=== PATIENT | female | born 1995 | race Caucasian/White ===

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

== ENCOUNTER → 2017-01-06 | Outpatient (CLI) | payer OTHER | END | disposition home or self-care (01) | LOC: C.LAB 00:05 | DX: Z02.83 Encounter for blood-alcohol and blood-drug test (principal) ==

== ENCOUNTER → 2017-02-09 | Outpatient (CLI) | payer OTHER | END | disposition home or self-care (01) | LOC: C.LABSPEC 11:10 | PROVIDERS: ATTEND Nurse Practitioner Family | DX: J06.9 Acute upper respiratory infection, unspecified (principal) ==

== ENCOUNTER 2017-03-12 18:56 | Emergency (ER) | payer OTHER ==
[~2017-03-12] VITALS: Ht 154.9 cm; Wt 47.7 kg
[2017-03-12 19:01] VITALS: TEMP 36.7; Ht 154.9 cm; Wt 47.7 kg
[2017-03-12] MEDS ORDERED: SODIUM CHLORIDE 0.9% 1000ML 1,000 ML IV STA ×2 (19:19→20:38)
--- NOTE | 2017-03-12 19:26 | EMERGENCY ROOM VISIT NOTE ---
History Report prepared by John: Luis Fernando Moscoso Under the Supervision of: Dr. Nirmal Frias D.O. First contact with patient: 19:09 Chief Complaint: SEIZURE Stated Complaint: SEIZURE History of Present Illness The patient is a 21 year old female who presents to the Emergency Room with complaints of a possible resolved seizure occurring prior to arrival. The mother states that the patient recently started using a cough syrup with codeine , a steroid, and amoxicillin. An hour after taking these, the patient was pale and breaking out in a rash. Then she went to go to the bathroom, and she started shaking and her pupils got large, and she fell off of the toilet and was shaking on the floor. The patient's family then put her back on the toilet, and she blacked out. The mother states that when the patient woke up she was not confused afterwards. She denies any tongue biting, bowel incontinence, bladder incontinence, abdominal pain, neck pain, neck stiffness, leg swelling, and coughing. She notes that she has a headache, fever, and a sore throat. The patient states that her last period was two weeks ago, and she does not have any medical problems or past surgeries. The patient was given Benadryl an hour and a half ago. Source of History: patient Onset: prior to arrival Position: other (global) Quality: other (seizure) Timing: resolved Associated Symptoms: + LOC, + fevers, + headache, + sorethroat, No cough, No neck pain Review of Systems See HPI for pertinent positives & negatives. A total of 10 systems reviewed and were otherwise negative. Past Medical & Surgical Medical Problems: (1) Urinary tract infection Family History Patient reports no known family medical history. Social History Smoking Status: Current Every Day Smoker Alcohol Use: none Drug Use: none Marital Status: single Housing Status: lives with family Occupation Status: student Current/Historical Medications Scheduled Azithromycin (Zithromax), 250 MG PO DAILY Allergies Coded Allergies: Sulfa Antibiotics (Verified Allergy, Unknown, swelling, 03/12/17) Physical Exam Vital Signs Date Time Temp Pulse Resp B/P (MAP) Pulse Ox O2 Delivery O2 Flow Rate FiO2 03/12/17 21:19 80 18 92/64 100 Room Air 03/12/17 19:58 101 03/12/17 19:57 100 89/57 114 85/65 127 91/68 03/12/17 19:57 98 Room Air 03/12/17 19:01 36.7 137 18 84/59 100 Room Air Physical Exam GENERAL: Patient is awake, alert, and in no acute distress. Patient is resting comfortably and showing no signs of anxiety EYES: The conjunctivae are clear. The pupils are round and reactive. EARS, NOSE, MOUTH AND THROAT: The nose is without any evidence of any deformity. Mucous membranes are moist tongue is midline NECK: The neck is nontender and supple. RESPIRATORY: Normal respiratory effort is noted there is no evidence of wheezing rhonchi or rales CARDIOVASCULAR: Regular rate and rhythm noted there no murmurs rubs or gallops normal S1 normal S2 GASTROINTESTINAL: The abdomen is soft. Bowel sounds are present in all quadrants. Abdomen is nontender MUSCULOSKELETAL/EXTREMITIES: There is no evidence of gross deformity full range of motion is noted in the hips and shoulders SKIN: There is no obvious evidence of any rash. There are no petechiae, pallor or cyanosis noted. NEUROLOGIC: Patient is awake alert and oriented x3 strength is symmetric patellar reflexes are 2+ bilaterally Medical Decision & Procedures ER Provider Diagnostic Interpretation: Radiology results as stated below per my review and radiologist interpretation: CHEST ONE VIEW PORTABLE CLINICAL HISTORY: Altered mental status. Weakness. COMPARISON STUDY: 05/29/2014 FINDINGS: The cardiac and mediastinal contours are normal. There is no evidence of focal pulmonary consolidation. There is no evidence of failure. No pleural effusions are visualized.[ IMPRESSION: No active disease in the chest. Electronically signed by: Román Mayorga M.D. 03/12/2017 7:40 PM Dictated Date/Time: 03/12/2017 7:[address] HEAD WITHOUT CONTRAST (CT) CLINICAL HISTORY: Acute change in mental status. Weakness. COMPARISON STUDY: 02-04 TECHNIQUE: Axial CT of the brain is performed from the vertex to the skull base. IV contrast was not administered for this examination. A dose lowering technique was utilized adhering to the principles of ALARA. CT DOSE: 537.48 mGy.cm FINDINGS: No intra or extra-axial mass lesions are visualized. There is no CT evidence of acute cortical infarction. There is no evidence of midline shift. There is no acute hemorrhage. No calvarial fractures are visualized. There is no evidence of pathologic ventricular dilatation. There is no evidence of acute sinusitis IMPRESSION: No acute intracranial findings Electronically signed by: Román Mayorga M.D. 03/12/2017 9:07 PM Dictated Date/Time: 03/12/2017 9:[address] the chest was obtained in the emergency department. The report was reviewed. FINDINGS: There is a 1 cm right lobe thyroid nodule. No pathologically enlarged axillary mediastinal or hilar lymph nodes were visualized. There was no evidence of thoracic aortic dilatation. There were no pulmonary artery filling defects to indicate acute pulmonary embolism. No pleural effusions are visualized. There was no evidence of focal pulmonary consolidation. IMPRESSION: 1. No evidence of acute pulmonary embolism 2. No evidence of focal pulmonary consolidation 3. 1 cm right lobe thyroid nodule Electronically signed by: Román Mayorga M.D. 03/12/2017 10:02 PM Laboratory Results 03/12/17 19:45 Red Blood Count 4.99, Mean Corpuscular Volume 92.4, Mean Corpuscular Hemoglobin 32.9, Mean Corpuscular Hemoglobin Concent 35.6, Mean Platelet Volume 10.9, Neutrophils (%) (Auto) 87.3, Lymphocytes (%) (Auto) 6.8, Monocytes (%) (Auto) 5.4, Eosinophils (%) (Auto) 0.1, Basophils (%) (Auto) 0.1, Neutrophils # (Auto) 17.44, Lymphocytes # (Auto) 1.37, Monocytes # (Auto) 1.09, Eosinophils # (Auto) 0.03, Basophils # (Auto) 0.02 03/12/17 19:45 Test 03/12/17 19:45 White Blood Count 20.01 K/uL (4.8-10.8) Red Blood Count 4.99 M/uL (4.2-5.4) Hemoglobin 16.4 g/dL (12.0-16.0) Hematocrit 46.1 % (37-47) Mean Corpuscular Volume 92.4 fL (80-100) Mean Corpuscular Hemoglobin 32.9 pg (25-34) Mean Corpuscular Hemoglobin Concent 35.6 g/dl (32-36) Platelet Count 209 K/uL (130-400) Mean Platelet Volume 10.9 fL (7.4-10.4) Neutrophils (%) (Auto) 87.3 % Lymphocytes (%) (Auto) 6.8 % Monocytes (%) (Auto) 5.4 % Eosinophils (%) (Auto) 0.1 % Basophils (%) (Auto) 0.1 % Neutrophils # (Auto) 17.44 K/uL (1.4-6.5) Lymphocytes # (Auto) 1.37 K/uL (1.2-3.4) Monocytes # (Auto) 1.09 K/uL (0.11-0.59) Eosinophils # (Auto) 0.03 K/uL (0-0.5) Basophils # (Auto) 0.02 K/uL (0-0.2) RDW Standard Deviation 43.3 fL (36.4-46.3) RDW Coefficient of Variation 13.0 % (11.5-14.5) Immature Granulocyte % (Auto) 0.3 % Immature Granulocyte # (Auto) 0.06 K/uL (0.00-0.02) D-Dimer 34850 ug/L FEU (0-500) Anion Gap 9.0 mmol/L (3-11) Est Creatinine Clear Calc Drug Dose 82.1 ml/min Estimated GFR () 118.5 Estimated GFR (Non- 102.2 BUN/Creatinine Ratio 22.9 (10-20) Calcium Level 9.3 mg/dl (8.5-10.1) Magnesium Level 2.1 mg/dl (1.8-2.4) Total Bilirubin 0.9 mg/dl (0.2-1) Direct Bilirubin 0.2 mg/dl (0-0.2) Aspartate Amino Transf (AST/SGOT) 17 U/L (15-37) Alanine Aminotransferase (ALT/SGPT) 16 U/L (12-78) Alkaline Phosphatase 81 U/L (45-117) Troponin I < 0.015 ng/ml (0-0.045) Total Protein 7.2 gm/dl (6.4-8.2) Albumin 3.8 gm/dl (3.4-5.0) Thyroid Stimulating Hormone (TSH) 1.790 uIu/ml (0.300-4.500) Human Chorionic Gonadotropin, Qual NEG (NEG) Monoscreen NEG (NEG) Laboratory results per my review. Medications Administered Medications (Trade) Dose Ordered Sig/Stephanie Route Start Time Stop Time Status Last Admin Dose Admin Sodium Chloride 1,000 ml @ 999 mls/hr Q1H1M STAT IV 03/12/17 19:19 03/12/17 20:19 DC 03/12/17 19:56 999 MLS/HR Sodium Chloride 1,000 ml @ 999 mls/hr Q1H1M STAT IV 03/12/17 20:38 03/12/17 21:38 DC 03/12/17 21:21 999 MLS/HR ECG Indication: syncope Rate (beats per minute): 93 Rhythm: normal sinus Findings: no ectopy, other (No acute ST segment abnormality) Comparison ECG Date: no prior available ED Course 1908: The patient was evaluated in room B12. A complete history and physical examination were performed. 1918: NSS 1,000 ml @ 999 mls/hr IV 2037: NSS 1,000 ml @ 999 mls/hr IV 2039: I reevaluated the patient, and she was doing well. Medical Decision Differential diagnosis: Etiologies such as vasovagal event, infection, hypoglycemia, electrolyte abnormalities, cardiac sources, intracerebral event, toxicologic, neurologic, as well as others were entertained. Nursing notes reviewed. The patient is a 21-year-old female who presented to emergency department for evaluation after having a syncopal episode. The patient had multiple syncopal episodes prior to arrival. The history was obtained from the mother who witnessed the episode. She was concerned because it was some shaking and she was unsure if this represented a seizure however there is no tongue biting no loss of bowel or bladder continence and no postictal phase was reported. The patient was treated with IV fluids in the emergency department. Initially she was found have hypotension and tachycardia. She did not have a fever however she was treated recently for a pharyngitis with an antibiotic and steroid and Tylenol with Codeine. The patient was unsure if she had a reaction to one of the medications because she took them prior to the onset of the symptoms. The patient was treated with IV fluids in the emergency department. She was reevaluated multiple times. I discussed the patient's laboratory radiographic studies with her and her parents. The patient was found have an elevation in her white blood cell count. She does have upper respiratory symptoms. It is possible this elevation in his white blood cell count could be an acute phase reaction from the syncopal episode however the patient was encouraged to continue her antibiotic prescription. She was also given a steroid earlier today and this could cause her white blood cell count elevated. The patient did not wish to take any of the medication she was started on earlier so for this reason she was started on a different antibiotic. She was encouraged to follow-up with your family for further testing for syncope. She was also encouraged to return to the emergency department immediately if symptoms change worsen or the need arises. Medication Reconcilliation Current Medication List: was personally reviewed by me Blood Pressure Screening Patient's blood pressure: Low blood pressure Impression Primary Impression: Syncope Additional Impressions: Orthostatic hypotension Pharyngitis, acute Scribe Attestation The scribe's documentation has been prepared under my direction and personally reviewed by me in its entirety. I confirm that the note above accurately reflects all work, treatment, procedures, and medical decision making performed by me. Departure Information Prescriptions Azithromycin (Zithromax) 250 Mg Tab 250 MG PO DAILY, #4 TAB Prov: Nirmal Frias, DO 03/12/17 Patient Instructions My [facility] Problem Qualifiers Primary Impression: Syncope Syncope type: unspecified Qualified Codes: R55 - Syncope and collapse Additional Impressions: Pharyngitis, acute Pharyngitis/tonsillitis etiology: unspecified etiology Qualified Codes: J02.9 - Acute pharyngitis, unspecified
--- NOTE | 2017-03-12 19:42 | DIAGNOSTIC IMAGING REPORT ---
CHEST ONE VIEW PORTABLE CLINICAL HISTORY: Altered mental status. Weakness. COMPARISON STUDY: 05/29/2014 FINDINGS: The cardiac and mediastinal contours are normal. There is no evidence of focal pulmonary consolidation. There is no evidence of failure. No pleural effusions are visualized.[ IMPRESSION: No active disease in the chest. Electronically signed by: Román Mayorga M.D. 03/12/2017 7:40 PM Dictated Date/Time: 03/12/2017 7:40 PM
[2017-03-12 19:57] VITALS: O2SAT 98
[2017-03-12 19:57] LABS: BASO % 0.1 %; BASO ABS # 0.02 K/uL (0-0.2); COMPLETE YES; EOS % 0.1 %; HEMATOCRIT 46.1 % (37-47); IG% 0.3 %; LYMPH % 6.8 %; LYMPH ABS # 1.37 K/uL (1.2-3.4); MEAN CELL VOLUME 92.4 fL (80-100); MEAN CORPUSCULAR HEMOGLOBIN 32.9 pg (25-34); MEAN CORPUSCULAR HGB CONC 35.6 g/dl (32-36); MEAN PLATELET VOLUME 10.9 fL (7.4-10.4); MONO % 5.4 %; NEUT % 87.3 %; PLATELET COUNT 209 K/uL (130-400); RED BLOOD COUNT 4.99 M/uL (4.2-5.4); WHITE BLOOD COUNT 20.01 K/uL (4.8-10.8)
[2017-03-12 20:15] LABS: ALT/SGPT 16 U/L (12-78); BLOOD UREA NITROGEN 19 mg/dl (7-18); BUN/CREATININE RATIO 22.9 (10-20); CALCIUM 9.3 mg/dl (8.5-10.1); CARBON DIOXIDE 23 mmol/L (21-32); CHLORIDE 103 mmol/L (98-107); CREATININE 0.83 mg/dl (0.60-1.20); GLUCOSE 92 mg/dl (70-99); MAGNESIUM 2.1 mg/dl (1.8-2.4); POTASSIUM 3.7 mmol/L (3.5-5.1); SODIUM 135 mmol/L (136-145)
[2017-03-12 20:17] LABS: PREG INTERNAL NEGATIVE QC NEG CLEAR BACKGROUND; PREG INTERNAL POSITIVE QC POS CONTROL LINE
[2017-03-12 20:26] LABS: ALKALINE PHOSPHATASE 81 U/L (45-117); AST/SGOT 17 U/L (15-37)
--- NOTE | 2017-03-12 21:08 | DIAGNOSTIC IMAGING REPORT ---
CT HEAD WITHOUT CONTRAST (CT) CLINICAL HISTORY: Acute change in mental status. Weakness. COMPARISON STUDY: 02-04 TECHNIQUE: Axial CT of the brain is performed from the vertex to the skull base. IV contrast was not administered for this examination. A dose lowering technique was utilized adhering to the principles of ALARA. CT DOSE: 537.48 mGy.cm FINDINGS: No intra or extra-axial mass lesions are visualized. There is no CT evidence of acute cortical infarction. There is no evidence of midline shift. There is no acute hemorrhage. No calvarial fractures are visualized. There is no evidence of pathologic ventricular dilatation. There is no evidence of acute sinusitis IMPRESSION: No acute intracranial findings Electronically signed by: Román Mayorga M.D. 03/12/2017 9:07 PM Dictated Date/Time: 03/12/2017 9:06 PM
[2017-03-12] MEDS ORDERED: OPTIRAY 320 IV PRN (21:45)
--- NOTE | 2017-03-12 22:03 | DIAGNOSTIC IMAGING REPORT ---
CT ANGIOGRAM OF THE CHEST CLINICAL HISTORY: Syncope. COMPARISON STUDY: Chest x-ray dated 03/10/2017 TECHNIQUE: Following the IV administration of 85 mL of Optiray-320, CT angiogram of the thorax was performed from the thoracic inlet to the lung bases utilizing the pulmonary embolus protocol. Images are reviewed in the axial, sagittal, and coronal planes. IV contrast was administered without complication. MIP imaging was performed. A dose lowering technique was utilized adhering to the principles of ALARA. CT DOSE: 195.65 mGy.cm FINDINGS: There is a 1 cm right lobe thyroid nodule. No pathologically enlarged axillary mediastinal or hilar lymph nodes were visualized. There was no evidence of thoracic aortic dilatation. There were no pulmonary artery filling defects to indicate acute pulmonary embolism. No pleural effusions are visualized. There was no evidence of focal pulmonary consolidation. IMPRESSION: 1. No evidence of acute pulmonary embolism 2. No evidence of focal pulmonary consolidation 3. 1 cm right lobe thyroid nodule Electronically signed by: Román Mayorga M.D. 03/12/2017 10:02 PM Dictated Date/Time: 03/12/2017 9:57 PM
[2017-03-12] MEDS ORDERED: AZITHROMYCIN 250 MG TAB PO STA (22:10)
[2017-03-12] MEDS ORDERED: AZIT250T PO (22:12)
[2017-03-12 22:29] VITALS: BP 100/77; PULSE 80; O2SAT 98
[2017-03-12 22:34] LABS: MANUAL MICROSCOPIC REQUIRED? NO; REVIEW REQ? NO; URINE APPEARANCE CLEAR (CLEAR); URINE BILIRUBIN NEG (NEG); URINE COLOR YELLOW; URINE EPITHELIAL CELL AUTO >30 /lpf (0-5); URINE NITRITE NEG (NEG); URINE SPECIFIC GRAVITY > 1.045 (1.000-1.030); UROBILINOGEN NEG (NEG)
== END 2017-03-12 22:38 | disposition home or self-care (01) ==
LOC: C.EDB 18:56
DX: R55 Syncope and collapse (principal); J02.9 Acute pharyngitis, unspecified; R21 Rash and other nonspecific skin eruption; R03.1 Nonspecific low blood-pressure reading; R51 Headache; F17.200 Nicotine dependence, unspecified, uncomplicated

== ENCOUNTER → 2017-05-18 | Outpatient (CLI) | payer OTHER ==
[~2017-05-18] MED LIST: AZIT250T PO
== END | disposition home or self-care (01) ==
LOC: C.LABSPEC 13:49
PROVIDERS: ATTEND Physician Assistant
DX: N89.8 Other specified noninflammatory disorders of vagina (principal); R30.0 Dysuria

== ENCOUNTER → 2017-06-03 | Outpatient (CLI) | payer OTHER | END | disposition home or self-care (01) | LOC: C.LABSPEC 16:20 | PROVIDERS: ATTEND Physician Assistant Medical | DX: R39.9 Unspecified symptoms and signs involving the genitourinary system (principal) ==

== ENCOUNTER 2017-08-13 13:01 | Emergency (ER) | payer OTHER ==
[~2017-08-13] VITALS: Ht 154.9 cm; Wt 53.0 kg
[2017-08-13 13:13] VITALS: Ht 154.9 cm; Wt 53.0 kg
[2017-08-13] MEDS ORDERED: FAMOTIDINE 20MG/5ML IV PUSH IV STA (13:20)
[2017-08-13] MEDS ORDERED: METHYLPREDNISOLONE 125 MG VIAL IV STA (13:20)
[2017-08-13] MEDS ORDERED: SODIUM CHLORIDE 0.9% 1000ML 1,000 ML IV STA (13:20)
--- NOTE | 2017-08-13 13:22 | EMERGENCY ROOM VISIT NOTE ---
History Report prepared by John: Servando Beckett Under the Supervision of: Dr. Jeyson Faulkner M.D. First contact with patient: 13:16 Chief Complaint: ALLERGIC REACTION Stated Complaint: HIVES Nursing Triage Summary: see triage note History of Present Illness The patient is a 21 year old female who presents to the Emergency Room with complaints of a resolved rash to her arms and lips that occurred prior to arrival. The patient states she was evaluated by her PCP today because she was not feeling well. She reports she was not tested for strep throat, but she has a history of it. The patient notes she was placed on amoxicillin because of her history. She states she was given the liquid form and took her first dose. She reports she developed a rash on her arms, lips, and her tongue started to swell. The patient notes she took Benadryl BACK WEDGER and it resolved her rash. She denies the chance of . Source of History: patient Onset: BACK WEDGER Position: lip, arm (bilateral) Quality: other (rash) Timing: resolved Modifying Factors (Relieving): other (Benadryl) Note: Associated symptoms: tongue swelling Review of Systems See HPI for pertinent positives and negatives. A total of ten systems were reviewed and were otherwise negative. Past Medical & Surgical Medical Problems: (1) Urinary tract infection Family History Patient reports no known family medical history. Social History Smoking Status: Current Every Day Smoker Alcohol Use: none Drug Use: none Marital Status: single Housing Status: lives with family Occupation Status: student Current/Historical Medications Scheduled Control Pills ( Control Pills), 1 TAB PO DAILY Scheduled PRN Epinephrine (Epipen), 0.3 MG IM UD PRN for Allergic Reaction Allergies Coded Allergies: Sulfa Antibiotics (Verified Allergy, Unknown, swelling, 08/13/17) Physical Exam Vital Signs Date Time Temp Pulse Resp B/P (MAP) Pulse Ox O2 Delivery O2 Flow Rate FiO2 08/13/17 15:15 36.5 90 18 100/50 99 08/13/17 15:03 100/50 100/50 08/13/17 14:57 90 18 85/53 08/13/17 14:24 95 18 99 Room Air 08/13/17 13:20 100 08/13/17 13:13 36.5 98 18 85/54 99 Room Air Physical Exam Physical Exam GENERAL: She is oriented to person, place, and time. She appears well- developed and well-nourished. She does not appear distressed. ____ HENT: Exam performed. Head: Normocephalic and atraumatic. Right Ear: External ear normal. No mastoid tenderness. Left Ear: External ear normal. No mastoid tenderness. Mouth/Throat: The oropharynx is clear and moist. No trismus in the jaw. No dental abscesses or uvula swelling. No oropharyngeal exudate or tonsillar abscesses. ____ EYES: Conjunctivae and EOM are normal. Pupils are equal, round, and reactive to light. Right eye exhibits no discharge. Left eye exhibits no discharge. No scleral icterus. ____ NECK: Normal range of motion. Neck supple. No JVD present. No spinous process tenderness present. No carotid bruit present. No rigidity. No tracheal deviation and normal range of motion present. No Brudzinski's sign and no Kernig 's sign noted. ____ CV: Normal rate, regular rhythm, normal heart sounds and intact distal pulses. There is no peripheral edema. Palpable radial pulses bue. ____ PULM/CHEST: Effort normal and breath sounds normal. No respiratory distress. No stridor. She has no wheezes. She has no rales. Chest Wall: She exhibits no tenderness. ____ ABD: The abdomen is soft. Bowel sounds are normal. She has no distension. No mass is present. There is no tenderness. There is no rebound, no guarding, no Del Valle's sign and no tenderness at McBurney's point. Rovsig negative MUSC/SKEL: Normal range of motion. There is no peripheral edema, tenderness or deformity. LYMPH: No cervical adenopathy. ____ NEURO: She is alert and oriented to person, place, and time. She has normal strength. No cranial nerve deficit or sensory deficit. Coordination and gait normal. GCS eye subscore is 4. GCS verbal subscore is 5. GCS motor subscore is 6. Cerebellar tests wnl. ____ SKIN: Skin is warm and dry. She is not diaphoretic. ____ PSYCH: She has a normal mood and affect. Her behavior is normal. Judgment and thought content normal. ____ Medical Decision & Procedures Laboratory Results Test 08/13/17 14:20 Urine Test NEG (NEG) Laboratory results reviewed by me Medications Administered Medications (Trade) Dose Ordered Sig/Stephanie Route Start Time Stop Time Status Last Admin Dose Admin Sodium Chloride 1,000 ml @ 999 mls/hr Q1H1M STAT IV 08/13/17 13:20 08/13/17 14:20 DC 08/13/17 14:04 999 MLS/HR Methylprednisolone Sodium Succinate (Solu-Medrol IV) 125 mg NOW STAT IV 08/13/17 13:20 08/13/17 13:22 DC 08/13/17 14:02 125 MG Famotidine (Pepcid 20mg Iv Push) 20 mg ONE STAT IV 08/13/17 13:20 08/13/17 13:22 DC 08/13/17 14:02 20 MG ED Course 1317: The patient was evaluated in room B10. A complete history and physical exam was performed. 1320: Ordered Famotidine 20mg IV, Solu-Medrol 125mg IV, Sodium Chloride 1000 ml @ 999 mls/hr IV 1413: I reevaluated the patient, and she is breathing comfortably. 1458: I reevaluated the patient. Vital signs stable. Repeat manual blood pressure was 100/50. Repeat physical exam was wnl. No stridor, difficultly breathing, or wheezing. I advised her not to take amoxicillin. Her urine and rapid strep was negative. I will hold on antibiotics until her culture results are obtained. The family at bedside agree with the plan. DISCHARGE - Plan of care discussed with patient and questions answered. The patient was given both verbal and printed discharge instructions. The patient verbalized understanding and ability to comply. The patient is to seek outpatient follow up as noted in the discharge instructions. The patient verbalized understanding and ability to comply. The patient is discharged in stable condition. The patient was instructed to return for worsening symptoms. Medical Decision Vital signs stable. Repeat manual blood pressure was 100/50. Repeat physical exam was wnl. No stridor, difficultly breathing, or wheezing. I advised her not to take amoxicillin. Her urine and rapid strep was negative. I will hold on antibiotics until her culture results are obtained. The family at bedside agree with the plan. DISCHARGE - Plan of care discussed with patient and questions answered. The patient was given both verbal and printed discharge instructions. The patient verbalized understanding and ability to comply. The patient is to seek outpatient follow up as noted in the discharge instructions. The patient verbalized understanding and ability to comply. The patient is discharged in stable condition. The patient was instructed to return for worsening symptoms. Medication Reconcilliation Current Medication List: was personally reviewed by me Blood Pressure Screening Patient's blood pressure: Low blood pressure Blood pressure disposition: Referred to PCP Impression Primary Impression: Allergic reaction caused by a drug Scribe Attestation The scribe's documentation has been prepared under my direction and personally reviewed by me in its entirety. I confirm that the note above accurately reflects all work, treatment, procedures, and medical decision making performed by me. The chart was completed utilizing [employer] Speech voice recognition software. Grammatical errors, random word insertions, pronoun errors, and incomplete sentences are an occasional consequence of this system due to software limitations, ambient noise, and hardware issues. Any formal questions or concerns about the content, text, or information contained within the body of this dictation should be directly addressed to the physician for clarification. Departure Information Dispostion Home / Self-Care Prescriptions Epinephrine (EPIPEN) 0.3 Mg/0.3 Ml Inj 0.3 MG IM UD Y for Allergic Reaction, #1 APPL 2 Refills Prov: Jeyson Faulkner M.D. 08/13/17 Referrals Luanne Olmstead, C.R.N.P. (PCP) Forms HOME CARE DOCUMENTATION FORM, IMPORTANT VISIT INFORMATION Patient Instructions ED Drug React Allergic, My [facility] Additional Instructions Avoid taking amoxicillin or related antibiotics to penicillin in the future. Problem Qualifiers Primary Impression: Allergic reaction caused by a drug Encounter type: initial encounter Qualified Codes: T78.40XA - Allergy, unspecified, initial encounter
[2017-08-13] MEDS ORDERED: BCPILLS PO (14:56)
[2017-08-13 15:15] VITALS: BP 100/50; PULSE 90; TEMP 36.5; O2SAT 99
[2017-08-13] MEDS ORDERED: EPP3/2 IM (15:19)
== END 2017-08-13 15:29 | disposition home or self-care (01) ==
LOC: C.EDB 13:02
DX: T78.40XA Allergy, unspecified, initial encounter (principal); X58.XXXA Exposure to other specified factors, initial encounter; F17.200 Nicotine dependence, unspecified, uncomplicated; Z88.2 Allergy status to sulfonamides